=== PATIENT | male | born 1955 | race Caucasian/White ===

== ENCOUNTER → 2016-12-28 | Day surgery (SDC) | payer MEDICARE, BC ==
[2016-12-23 14:23] VITALS: BMI 24.0
[~2016-12-28] MED LIST: LIDOCAINE 1% INJ 10MG/ML (20 ML MDV) ONE; PROPOFOL 10 MG/ML 20 ML VIAL IV ONE; SODIUM CHLORIDE 0.9% 1,000 ML IV SCH
[2016-12-28 06:27] VITALS: RESP 16; TEMP 98
[2016-12-28 06:41] LABS: Glucose,Whole Blood 167 mg/dL (75-99)
--- NOTE | 2016-12-28 08:57 | CE ---
DATE OF SERVICE: Mr. Huerta has severe cardiomyopathy and single-chamber ICD. He was brought in for DFT testing under anesthesia. He has ( ) 1357-40 C ICD, serial #[id number]. The ventricular pacing threshold 0.75 v at 0.5 ms, R waves 11.7 mV, pacing impedance 360 ohms. Shocking impedance 86 ohms. A DC fib shock was used to induce ventricular fibrillation. This was adequately and appropriately detected at least sensitivity and successfully internally defibrillated with a 10 joule shock in cathodal polarity, high voltage impedance 86 ohms. Charge time 1.6 seconds. No dropouts. No postshock noise. The device was then programmed according to the MADIT-RIT programming. Three zones of ventricular tachy therapy is programmed with appropriate antitachycardia pacing, cardioversion and defibrillation. Sensitivity is programmed to 0.5 mV, cathodal vector was used. Patient tolerated the procedure well without any acute complications. RESULT: 1. DFT at or below 10 joules, cathodal polarity. 2. ICD was interrogated and reprogrammed to MADIT-RIT programming.
[2016-12-28 09:03] VITALS: BP 106/72; PULSE 81
== END ==
LOC: CATHEP 05:49
PROVIDERS: ATTEND Internal Medicine Clinical Cardiac Electrophysiology
DX: Z45.02 Encounter for adjustment and management of automatic implantable cardiac defibrillator (principal); I25.10 Atherosclerotic heart disease of native coronary artery without angina pectoris; E78.2 Mixed hyperlipidemia; I42.9 Cardiomyopathy, unspecified; I10 Essential (primary) hypertension; Z79.82 Long term (current) use of aspirin; Z79.899 Other long term (current) drug therapy; Z79.84 Long term (current) use of oral hypoglycemic drugs; Z79.4 Long term (current) use of insulin; Z88.1 Allergy status to other antibiotic agents; Z88.8 Allergy status to other drugs, medicaments and biological substances
CPT/HCPCS: 93642; J2001; J2704

== ENCOUNTER → 2017-02-18 | Outpatient (CLI) | payer MEDICARE, BC ==
--- NOTE | 2017-02-19 06:41 | US ---
EXAMINATION TYPE: US thyroid st tissue head/neck DATE OF EXAM: 02/18/2017 COMPARISON: Previous study dated 01/09/2015. CLINICAL HISTORY: E21.0 Primary hyperparathyroidism. GLAND SIZE: Right Lobe: 3.9 x 1.8 x 1.4 cm Overall Parenchyma: homogenous Left Lobe: 3.9 x 1.9 x 1.5 cm Overall Parenchyma: homogeneous Isthmus Thickness: 0.2 cm NODULES RIGHT: # of nodules measured on right: 1 1. 0.7 x 0.4 x 0.5 cm hypoechoic solid nodule at the lower pole with poorly defined margins. This n odule is wider than tall and shows no intranodular vascularity. Prior size: 0.9 x 0.6 x 0.5 cm LEFT: # of nodules measured on left: 2 1. 0.5 x 0.4 x 0.4 cm echogenic solid nodule at the mid pole with poorly defined margins. This nodu le is taller than wide and shows no intranodular vascularity. Prior size: 0.5 x 0.3 x 0.4 cm 2. 0.3 X 0.2 x 0.4 cm hypoechoic solid nodule at the lower pole with well-defined margins. This nod ule is wider than tall and shows no intranodular vascularity. Prior size: 0.4 x 0.4 x 0.3 ISTHMUS: # of nodules measured in the isthmus: 0 0 Bilateral neck scanned, no evidence of lymphadenopathy. IMPRESSION: STABLE MULTINODULAR GOITER.
== END | disposition home or self-care (01) ==
LOC: RADUSWWP 15:33
PROVIDERS: ATTEND Internal Medicine Endocrinology, Diabetes & Metabolism
DX: E04.2 Nontoxic multinodular goiter (principal)
CPT/HCPCS: 76536

== ENCOUNTER → 2018-07-24 | Outpatient (CLI) | payer MEDICARE, BC ==
[2018-07-24 15:55] LABS: HGB 14.2 gm/dL (13.0-17.5); MCH 30.5 pg (25.0-35.0); MCHC 34.7 g/dL (31.0-37.0); Platelet Count 326 k/uL (150-450); RBC 4.66 m/uL (4.30-5.90); RDW 13.3 % (11.5-15.5); WBC 11.6 k/uL (3.8-10.6)
[2018-07-24 16:04] LABS: Anion Gap 9 mmol/L; Blood Urea Nitrogen 20 mg/dL (9-20); Carbon Dioxide 29 mmol/L (22-30); Chloride 99 mmol/L (98-107); Glucose 134 mg/dL (74-99); Potassium 5.3 mmol/L (3.5-5.1); Sodium 137 mmol/L (137-145)
== END ==
LOC: LABPAT 15:20
PROVIDERS: ATTEND Internal Medicine Clinical Cardiac Electrophysiology
DX: Z01.812 Encounter for preprocedural laboratory examination (principal); I25.10 Atherosclerotic heart disease of native coronary artery without angina pectoris; I42.8 Other cardiomyopathies
CPT/HCPCS: 36415; 80051; 82565; 82947; 84520; 85027

== ENCOUNTER → 2018-08-03 | Day surgery (SDC) | payer MEDICARE, BC ==
[2018-08-01 11:00] VITALS: BMI 23.0
[2018-08-03 06:34] VITALS: RESP 18
[2018-08-03 06:37] LABS: Glucose,Whole Blood 117 mg/dL (75-99)
[2018-08-03 08:37] VITALS: TEMP 98
[2018-08-03 08:39] VITALS: BP 106/76; PULSE 80
--- NOTE | 2018-08-03 08:46 | CE ---
CARDIAC ELECTROPHYSIOLOGY REPORT Mr. Huerta is a gentleman with severe cardiomyopathy and heart failure who has [employer] ICD lead that has shown radiologic signs of externalization. He was brought in for DFT testing under anesthesia. Cinefluoroscopy of the leads was performed and at the heel of the lead in the right atrium, there was a short length of clear externalization. The R-waves are 11.7 mV, pacing threshold 0.8 V at 0.5 millisecond, pacing impedance of 380 ohms, shocking impedance 86 ohms. The pacing impedances and high-voltage impedances were stable. Under anesthesia, DFT testing was performed. DC Fibber shock was used to induce ventricular fibrillation. This was adequately and appropriately detected at least sensitivity without any drop outs. A 10 joule shock was unsuccessful. A 20 joule shock was successful. The first charge time was 1.6 seconds. The last charge time was 4 seconds. High-voltage impedance 88 ohms. No post shock noise. This was repeated again after 3 minutes with a 15 joule shock. This was successful. High-voltage impedance 88 ohms. Charge time 28 seconds. No post shock noise, one drop out. The device was then reprogrammed, first cardioversion at 15 joules, first defibrillation at 30 and 36 joules MADIT-RIT programming. The patient tolerated the procedure well without any acute complications. MMODL / IJN: [id number] /
== END | disposition home or self-care (01) ==
LOC: CATHEP 05:54
PROVIDERS: ATTEND Internal Medicine Clinical Cardiac Electrophysiology
DX: I42.8 Other cardiomyopathies (principal); E78.2 Mixed hyperlipidemia; E11.9 Type 2 diabetes mellitus without complications; E78.5 Hyperlipidemia, unspecified; I25.10 Atherosclerotic heart disease of native coronary artery without angina pectoris; K76.0 Fatty (change of) liver, not elsewhere classified; I11.0 Hypertensive heart disease with heart failure; I50.9 Heart failure, unspecified; F17.210 Nicotine dependence, cigarettes, uncomplicated; J44.9 Chronic obstructive pulmonary disease, unspecified; Z88.1 Allergy status to other antibiotic agents; Z88.8 Allergy status to other drugs, medicaments and biological substances; Z91.013 Allergy to seafood; Z95.810 Presence of automatic (implantable) cardiac defibrillator; Z79.82 Long term (current) use of aspirin; Z79.899 Other long term (current) drug therapy; Z79.4 Long term (current) use of insulin
CPT/HCPCS: 93642; 84132; J2001; J2704; 76000

== ENCOUNTER → 2022-06-07 | Outpatient (CLI) | payer MEDICARE, BC ==
--- NOTE | 2022-06-07 09:30 | CT ---
EXAMINATION TYPE: CT chest wo con DATE OF EXAM: 06/07/2022 COMPARISON: 02/10/2011 HISTORY: Shortness of breath CT DLP: 395.5 mGycm. Automated Exposure Control for Dose Reduction was Utilized. TECHNIQUE: CT scan of the thorax is performed without IV contrast. FINDINGS: LUNGS: There are diffuse emphysematous changes with no sizable pneumothorax or pleural effusion. Ther e are multiple sub-5 mm vague areas of nodularity seen scattered throughout the lungs bilaterally wit h the largest seen on axial image 23 measuring 3.6 mm. Subsegmental changes involving the lung bases typical of atelectasis or scarring. No pleural effusion or pneumothorax. No focal pneumonia.. MEDIASTINUM: Lack of IV contrast is noted to limit evaluation for mediastinal and especially hilar ad enopathy. There are no definitive greater than 1 cm hilar or mediastinal lymph nodes. Dense coronary artery calcification noted. Cardiac device seen. OTHER: Hypertrophic and degenerative changes spine.. IMPRESSION: 1. Diffuse emphysematous changes with multiple 5 mm scattered bilateral pulmonary nodules which are t oo small to characterize. Recommend a follow-up [address] to assess for stability. 2. Dense coronary artery calcification.
== END | disposition home or self-care (01) ==
LOC: RADCTMAIN 08:32
PROVIDERS: ATTEND Family Medicine
DX: J43.9 Emphysema, unspecified (principal); I25.10 Atherosclerotic heart disease of native coronary artery without angina pectoris; R91.8 Other nonspecific abnormal finding of lung field
CPT/HCPCS: 71250

== ENCOUNTER → 2023-07-26 | Outpatient (CLI) | payer MEDICARE, BC ==
[2023-07-26 11:54] LABS: African American GFR (CKD) >90 (>60 ml/min/1.73 sqM); Blood Urea Nitrogen 15 mg/dL (9-20); Non-African American GFR(CKD) 89 (>60 ml/min/1.73 sqM)
--- NOTE | 2023-08-03 07:54 | CT ---
EXAMINATION TYPE: CT chest w con CT DLP: 168.70` mGycm, Automated exposure control for dose reduction was used. DATE OF EXAM: 07/26/2023 12:16 PM COMPARISON: CT chest without contrast 06/07/2022. 2V chest x-ray 04/11/2023. CLINICAL INDICATION:Male, 67 years old with history of R91.8 ABNORMAL LUNG FIELD; PHH, Abnormal lung dawn TECHNIQUE: Multiple axial images were obtained through the chest. Sagittal and coronal reformats were created for review. Contrast used:100 mL of Isovue 300 with IV Contrast (None if empty) Oral contrast used: (None if empty) FINDINGS: LUNGS/ PLEURA: Scattered lung nodules are redemonstrated, largest in the right upper lobe laterally i mage 24 series 4 measures 6 mm, by my measurement unchanged from prior. The additional smaller nodule s also show no significant change. No new or enlarging nodules. There is no airspace consolidation, pleural effusion, or pneumothorax. Mild/moderate bilateral emphysematous changes again noted. AIRWAY: Central airways are patent. Perihilar peribronchial soft tissue thickening. LOWER NECK: No significant findings. MEDIASTINUM: Similar nonenlarged to borderline prominent mediastinal nodes compared to prior. Mild bi lateral peribronchial and hilar soft tissue thickening without focal measurable adenopathy. HEART: Normal heart size. Moderate coronary artery calcification and/or stents. No appreciable perica rdial effusion. VASCULATURE: Moderate atherosclerotic calcifications of the aorta and branches. Ascending aorta is 3 .2 CM, descending is 2.2 CM. Aorta is considered within normal limits. Pulmonary trunk measures 2.3 CM. Pulmonary trunk is normal in size. Grossly preserved enhancement of the pulmonary arteries, in the limits of non-CTA exam. SOFT TISSUES/LYMPH NODES: Mild bilateral gynecomastia. No axillary adenopathy. Left chest single lead AICD device in place with lead terminating in the distal RV. UPPER ABDOMEN: Mild thickening of the adrenals without evidence of mass, could relate to hyperplasia. Moderate calcification of the upper abdominal aorta with focal calcification extending from posterio rly into the lumen just below the level of the renal arteries with 70-75% luminal diameter stenosis. Mild/moderate stenosis of the proximal renal arteries. Moderate narrowing of the proximal celiac deonna ry. Mild narrowing of the proximal SMA. No evidence of AAA. MUSCULOSKELETAL: No acute osseous abnormalities. Mild to moderate disc degeneration changes are prese nt throughout the thoracolumbar spine. IMPRESSION: * Stable bilateral pulmonary nodules, the largest 6 mm. Recommend 12 month follow-up low-dose CT. * Mild to moderate pulmonary emphysematous changes. * Mild bilateral peribronchial and hilar soft tissue thickening can be seen with acute or chronic br onchitis/bronchiolitis. * Normal heart size. Moderate coronary artery calcifications and/or stents. * Moderate atherosclerotic disease of the aorta and branches. No evidence of aortic aneurysm or diss ection. * Focal calcification of the abdominal aorta below the renal arteries with 70-75% luminal diameter s tenosis.
== END | disposition home or self-care (01) ==
LOC: RADCTMAIN 10:45
PROVIDERS: ATTEND Internal Medicine
DX: J43.9 Emphysema, unspecified (principal); J98.09 Other diseases of bronchus, not elsewhere classified; I70.0 Atherosclerosis of aorta; I25.10 Atherosclerotic heart disease of native coronary artery without angina pectoris; R91.8 Other nonspecific abnormal finding of lung field
CPT/HCPCS: 82565; 84520; 71260; 36415; Q9967

== ENCOUNTER → 2024-11-23 | Outpatient (CLI) | payer MEDICARE, BC ==
[2024-11-23 12:41] LABS: African American GFR (CKD) >90 (>60 ml/min/1.73 sqM); Blood Urea Nitrogen 15 mg/dL (9-20); Non-African American GFR(CKD) >90 (>60 ml/min/1.73 sqM)
--- NOTE | 2024-11-23 15:21 | CT ---
EXAMINATION TYPE: CT chest w con DATE OF EXAM: 11/23/2024 1:49 PM COMPARISON: None. CLINICAL INDICATION: Male, 69 years old with history of R91.8 OTHER NONSPECIFIC ABNORMAL FINDING OF L JG F, LUNG NODULES. PRIOR ON PACS. TECHNIQUE: Axial images were obtained at 5 mm thick sections. Reconstructed images are reviewed on kontoblick computer in the coronal plane. Contrast used:100ml mL of Isovue 300 with IV Contrast, (none if empty) Oral contrast used: (none if empty) CT DLP: 138.70 mGycm, Automated exposure control for dose reduction was used. FINDINGS: Portion of the thyroid visualized is normal. There is a 0.4 cm nodule peripheral right lung. Series 3 image 25. A smaller 0.3 cm nodule is slightl y more inferior. Series 3 image 27. These appear stable from comparison. Additional punctate right middle lobe nodules are present. Example images 33-36. These appear to be p resent previously No enlarged mediastinal or hilar adenopathy is evident. The ascending aorta diameter at the level o f the main pulmonary artery is 3.3 cm. The main pulmonary artery diameter at the bifurcation is 2.7 cm. No significant coronary artery calcifications. Limited CT sections are obtained through the upper abdomen. Abdomen is essentially unremarkable. IMPRESSION: 1. Multiple stable small and punctate nodules right lung. No new or increasing size nodules identifie d. [facility], , 11/23/2024 3:19 PM
== END | disposition home or self-care (01) ==
LOC: RADCTMAIN 12:05
PROVIDERS: ATTEND Internal Medicine
DX: R91.8 Other nonspecific abnormal finding of lung field (principal)
CPT/HCPCS: 82565; 84520; 71260; 36415; Q9967